=== PATIENT | male | born 1955 | race Caucasian/White ===

== ENCOUNTER 2024-10-23 10:45 | Inpatient (IN) | payer MEDICARE ==
[~2024-10-23] VITALS: Ht 185.4 cm; Wt 89.4 kg
[2024-10-23 11:35] LABS: BASOPHILS % (AUTO) 0.2 % (0.0-2.0); EOSINOPHILS # (AUTO) 0.1 K/uL (0.0-0.7); EOSINOPHILS % (AUTO) 0.6 % (0.0-6.0); HEMATOCRIT 50 % (39-51); HEMOGLOBIN 16.4 g/dL (13.5-17.5); LYMPHOCYTES # (AUTO) 1.4 K/uL (0.8-4.8); LYMPHOCYTES % (AUTO) 13.7 % (20.0-44.0); MEAN CORPUSCULAR HEMOGLOBIN 27 PG (26.0-33.0); MEAN CORPUSCULAR HGB CONC 33 g/dl (31.0-36.0); MEAN CORPUSCULAR VOLUME 84 fL (80-96); MONOCYTES % (AUTO) 10.2 % (2.0-12.0); NEUTROPHILS # (AUTO) 7.4 K/uL (1.8-8.9); NEUTROPHILS % (AUTO) 75.3 % (43.0-81.0); PLATELET COUNT (AUTO) 155 K/uL (150-450); WHITE BLOOD COUNT (AUTO) 9.9 K/uL (4.3-11.0)
[2024-10-23 11:46] LABS: INR 1.68 (0.91-1.10); PARTIAL THROMBOPLASTIN TIME 27.3 SEC (24.3-34.3); PROTHROMBIN TIME 17.2 SECS (9.2-11.1)
[2024-10-23 11:47] LABS: ALANINE AMINOTRANSFERASE 294 U/L (12-78); ALBUMIN 3.2 g/dL (3.4-5.0); ALKALINE PHOSPHATASE 89 U/L (46-116); ASPARTATE AMINOTRANSFERASE 156 U/L (15-37); BILIRUBIN,DIRECT 1.3 mg/dL (0.0-0.2); BILIRUBIN,TOTAL 3.2 mg/dL (0.2-1.0); CALCIUM, SERUM 8.5 mg/dL (8.5-10.1); CARBON DIOXIDE 23 mmol/L (21-32); CHLORIDE 106 mmol/L (98-107); CREATININE 1.6 mg/dL (0.6-1.3); GLUCOSE 96 mg/dL (74-106); POTASSIUM 4.2 mmol/L (3.5-5.1); SODIUM SERUM 139 mmol/L (136-145); TOTAL PROTEIN, SERUM 5.7 g/dL (6.4-8.2); UREA NITROGEN, BLOOD 37 mg/dL (7-18)
[2024-10-23] MEDS ORDERED: MULT1CAP28 PO (13:09)
[2024-10-23] MEDS ORDERED: ALBU6.7H9 IH (13:09)
[2024-10-23] MEDS ORDERED: ONDANSETRON HCL/PF 4 MG/2 ML VIAL IVP PRN (15:00)
[2024-10-23 16:00] VITALS: BP 127/80; TEMP 97.7; O2SAT 97
[2024-10-23 16:39] VITALS: BP 127/79; TEMP 98.4; O2SAT 97
[2024-10-23] MEDS: PIPERACILLIN /TAZOBACTAM 3.375 G in IV D5W 50 ML IV SCH (17:36)
[2024-10-23] MEDS: PHYTONADIONE INJ 10 MG/1 ML AMPUL SQ ONE (17:56)
[2024-10-23 20:00] VITALS: BP 124/85; TEMP 97.5; O2SAT 97
[2024-10-23 23:01] VITALS: O2SAT 98
[2024-10-23] MEDS: ALBUTEROL FS 2.5 MG/3 ML VIAL.NEB NEB PRN (23:02)
[2024-10-23 23:27] VITALS: BP 124/85; TEMP 97.5; O2SAT 98
[2024-10-24 06:51] LABS: BASOPHILS % (AUTO) 0.2 % (0.0-2.0); EOSINOPHILS # (AUTO) 0.1 K/uL (0.0-0.7); EOSINOPHILS % (AUTO) 1.5 % (0.0-6.0); HEMATOCRIT 43 % (39-51); HEMOGLOBIN 14.3 g/dL (13.5-17.5); LYMPHOCYTES # (AUTO) 1.3 K/uL (0.8-4.8); LYMPHOCYTES % (AUTO) 16.6 % (20.0-44.0); MEAN CORPUSCULAR HEMOGLOBIN 28 PG (26.0-33.0); MEAN CORPUSCULAR HGB CONC 33 g/dl (31.0-36.0); MEAN CORPUSCULAR VOLUME 83 fL (80-96); MONOCYTES # (AUTO) 0.9 K/uL (0.1-1.30); MONOCYTES % (AUTO) 11.6 % (2.0-12.0); NEUTROPHILS # (AUTO) 5.6 K/uL (1.8-8.9); NEUTROPHILS % (AUTO) 70.1 % (43.0-81.0); PLATELET COUNT (AUTO) 124 K/uL (150-450); RED CELL DISTRIBUTION WIDTH 16.7 % (11.5-15.0)
[2024-10-24 06:56] LABS: INR 1.57 (0.91-1.10); PROTHROMBIN TIME 16.2 SECS (9.2-11.1)
[2024-10-24 07:00] VITALS: BP 127/99; TEMP 97.7; O2SAT 97
[2024-10-24 07:13] LABS: ALBUMIN 2.5 g/dL (3.4-5.0); BILIRUBIN,TOTAL 2.3 mg/dL (0.2-1.0); CALCIUM, SERUM 8.1 mg/dL (8.5-10.1); CREATININE 1.5 mg/dL (0.6-1.3); MAGNESIUM 2.2 mg/dL (1.8-2.4); PHOSPHORUS 3.6 mg/dL (2.5-4.9); POTASSIUM 3.9 mmol/L (3.5-5.1); TOTAL PROTEIN, SERUM 4.6 g/dL (6.4-8.2)
[2024-10-24] MEDS: POTASSIUM CHLORIDE 20 MEQ TAB.PRT.SR PO SCH (07:46)
[2024-10-24] MEDS: FUROSEMIDE 40 MG/4 ML VIAL IV SCH (07:46)
[2024-10-24] MEDS: PANTOPRAZOLE 40 MG VIAL IV SCH (08:09)
[2024-10-24 13:29] LABS: APPEARANCE,URINE CLEAR (CLEAR); BILIRUBIN,URINE NEGATIVE (NEGATIVE); BLOOD, URINE TRACE-INTA Ery/uL (NEGATIVE); COLOR,URINE YELLOW (YELLOW); KETONES,URINE NEGATIVE (NEGATIVE); LEUKOCYTE ESTERASE ,URINE TRACE (NEGATIVE); NITRITE, URINE NEGATIVE (NEGATIVE); PH,URINE 5.5 (5.0-8.0); PROTEIN,URINE TRACE mg/dl (NEGATIVE); UGLUCOSE NEGATIVE (NEGATIVE); UROBILINOGEN,URINE 0.2 EU/dL (0.2)
[2024-10-24 13:35] LABS: CREATININE, URINE 54.1 MG/DL (30.0-125.0); URINE TOTAL PROTEIN 25.7 mg/dL (0-11.9)
[2024-10-24 14:04] LABS: ADD URINE CULTURE NO; BACTERIA,URINE Few /HPF (None Seen); RBC,URINE 0-2 /HPF (0-2); SQUAMOUS EPITHELIAL CELL,UR 0-2 /HPF (None Seen)
[2024-10-24 14:05] LABS: URIC ACID CRYSTALS,URINE Few /HPF (None Seen)
[2024-10-24 15:15] LABS: EOSINOPHIL,URINE None Seen
[2024-10-24 16:00] VITALS: BP 114/79; TEMP 97.3; O2SAT 95
[2024-10-24] MEDS: [UNRECOGNIZED DRUG - OTHER] PO SCH (19:30)
[2024-10-24 20:00] VITALS: BP_SYST 124; BP_SYST 132; BP_DIAS 71; BP_DIAS 77; TEMP 97.5; TEMP 98.4; O2SAT 96; O2SAT 98
[2024-10-25 04:09] LABS: HBSAG SCREEN Negative (Negative); HEPATITIS A AB, IgM Negative (Negative); HEPATITIS B CORE AB, IgM Negative (Negative)
[2024-10-25 06:47] LABS: BASOPHILS % (AUTO) 0.2 % (0.0-2.0); EOSINOPHILS # (AUTO) 0.1 K/uL (0.0-0.7); EOSINOPHILS % (AUTO) 0.7 % (0.0-6.0); HEMATOCRIT 49 % (39-51); HEMOGLOBIN 15.9 g/dL (13.5-17.5); LYMPHOCYTES # (AUTO) 1.2 K/uL (0.8-4.8); LYMPHOCYTES % (AUTO) 11.1 % (20.0-44.0); MEAN CORPUSCULAR HEMOGLOBIN 27 PG (26.0-33.0); MEAN CORPUSCULAR HGB CONC 33 g/dl (31.0-36.0); MEAN CORPUSCULAR VOLUME 83 fL (80-96); MONOCYTES # (AUTO) 1.2 K/uL (0.1-1.30); MONOCYTES % (AUTO) 11.2 % (2.0-12.0); NEUTROPHILS # (AUTO) 8.2 K/uL (1.8-8.9); NEUTROPHILS % (AUTO) 76.8 % (43.0-81.0); PLATELET COUNT (AUTO) 131 K/uL (150-450); RED BLOOD CELL COUNT(AUTO) 5.86 MIL/uL (4.5-6.0); RED CELL DISTRIBUTION WIDTH 16.6 % (11.5-15.0); WHITE BLOOD COUNT (AUTO) 10.7 K/uL (4.3-11.0)
[2024-10-25 07:00] VITALS: BP 123/61; TEMP 97.9; O2SAT 97
[2024-10-25 07:19] LABS: ALBUMIN 2.8 g/dL (3.4-5.0); BILIRUBIN,TOTAL 2.9 mg/dL (0.2-1.0); CALCIUM, SERUM 8.2 mg/dL (8.5-10.1); CREATININE 1.7 mg/dL (0.6-1.3); MAGNESIUM 1.9 mg/dL (1.8-2.4); PHOSPHORUS 3.9 mg/dL (2.5-4.9); POTASSIUM 3.7 mmol/L (3.5-5.1); TOTAL PROTEIN, SERUM 5.2 g/dL (6.4-8.2)
[2024-10-25 20:00] VITALS: BP 113/80; TEMP 97.7; O2SAT 98
[2024-10-26 06:56] LABS: BASOPHILS % (AUTO) 0.1 % (0.0-2.0); EOSINOPHILS % (AUTO) 0.5 % (0.0-6.0); HEMATOCRIT 45 % (39-51); HEMOGLOBIN 14.7 g/dL (13.5-17.5); LYMPHOCYTES % (AUTO) 10.6 % (20.0-44.0); MEAN CORPUSCULAR HEMOGLOBIN 27 PG (26.0-33.0); MEAN CORPUSCULAR HGB CONC 33 g/dl (31.0-36.0); MEAN CORPUSCULAR VOLUME 82 fL (80-96); MONOCYTES # (AUTO) 0.9 K/uL (0.1-1.30); NEUTROPHILS # (AUTO) 7.7 K/uL (1.8-8.9); NEUTROPHILS % (AUTO) 79.8 % (43.0-81.0); PLATELET COUNT (AUTO) 122 K/uL (150-450); RED BLOOD CELL COUNT(AUTO) 5.46 MIL/uL (4.5-6.0); RED CELL DISTRIBUTION WIDTH 17.1 % (11.5-15.0); WHITE BLOOD COUNT (AUTO) 9.7 K/uL (4.3-11.0)
[2024-10-26 07:28] LABS: ALBUMIN 2.8 g/dL (3.4-5.0); CALCIUM, SERUM 8.2 mg/dL (8.5-10.1); CREATININE 1.7 mg/dL (0.6-1.3); MAGNESIUM 2.1 mg/dL (1.8-2.4); PHOSPHORUS 3.6 mg/dL (2.5-4.9); POTASSIUM 2.9 mmol/L (3.5-5.1)
[2024-10-26 08:11] LABS: PTH, INTACT 8 pg/mL (15-65)
[2024-10-26] MEDS: PANTOPRAZOLE 40 MG TABLET.DR PO SCH (08:16)
[2024-10-26] MEDS: POTASSIUM CHLORIDE 20 MEQ TAB.PRT.SR PO SCH (08:16)
[2024-10-26] MEDS: FUROSEMIDE 40 MG/4 ML VIAL IV SCH (08:16)
[2024-10-26] MEDS ORDERED: POTASSIUM CHLORIDE 20 MEQ TAB.PRT.SR PO SCH (10:00)
[2024-10-26 20:00] VITALS: BP 102/71; TEMP 97.7; O2SAT 100
[2024-10-26 20:20] VITALS: BP 102/71; TEMP 97.3; O2SAT 100
[2024-10-27 06:07] LABS: AFP, TUMOR MARKER 4.7 ng/mL (0.0-8.4)
[2024-10-27 07:06] LABS: ALBUMIN 2.7 g/dL (3.4-5.0); BILIRUBIN,TOTAL 1.6 mg/dL (0.2-1.0); CREATININE 1.8 mg/dL (0.6-1.3); POTASSIUM 3.3 mmol/L (3.5-5.1)
[2024-10-27 08:00] VITALS: BP 97/74; TEMP 97.3; O2SAT 98
[2024-10-27 09:08] LABS: *SPE A/G RATIO 1.2 (0.7-1.7); *SPE ALBUMIN 2.7 g/dL (2.9-4.4); *SPE ALPHA-1-GLOBULIN 0.3 g/dL (0.0-0.4); *SPE ALPHA-2-GLOBULIN 0.4 g/dL (0.4-1.0); *SPE BETA GLOBULIN 0.9 g/dL (0.7-1.3); *SPE GLOBULIN, TOTAL 2.2 g/dL (2.2-3.9); *SPE M-SPIKE Not Observed g/dL (Not Observed); *SPE PROTEIN TOTAL 4.9 g/dL (6.0-8.5); *SPEGAMMA GLOBULIN 0.7 g/dL (0.4-1.8)
[2024-10-27] MEDS: FUROSEMIDE 40 MG TABLET PO SCH (09:08)
[2024-10-27] MEDS: POTASSIUM CHLORIDE 20 MEQ TAB.PRT.SR PO SCH ×2 (09:08→09:13)
[2024-10-27] MEDS ORDERED: METO-357 PO (11:58)
[2024-10-27] MEDS ORDERED: FURO40TA5 PO (11:58)
[2024-10-27 16:00] VITALS: BP 91/62; TEMP 98.1; O2SAT 94
== END 2024-10-27 16:50 | disposition home or self-care (01) | DRG 391 ==
LOC: ER 10:53 → MED 14:27
PROVIDERS: ATTEND Internal Medicine
PROC: 0DB58ZX Excision of Esophagus, Via Natural or Artificial Opening Endoscopic, Diagnostic (ICD-10-PCS; principal; 2024-10-24)
PROC: 0DB68ZX Excision of Stomach, Via Natural or Artificial Opening Endoscopic, Diagnostic (ICD-10-PCS; 2024-10-24)
DX: K29.70 Gastritis, unspecified, without bleeding (principal); I50.23 Acute on chronic systolic (congestive) heart failure; N17.0 Acute kidney failure with tubular necrosis; E44.1 Mild protein-calorie malnutrition; E87.20 Acidosis, unspecified; D68.9 Coagulation defect, unspecified; K22.70 Barrett's esophagus without dysplasia; K82.8 Other specified diseases of gallbladder; K72.90 Hepatic failure, unspecified without coma; E87.6 Hypokalemia; E88.09 Other disorders of plasma-protein metabolism, not elsewhere classified; I25.10 Atherosclerotic heart disease of native coronary artery without angina pectoris; Z86.16 Personal history of COVID-19; E83.9 Disorder of mineral metabolism, unspecified; K76.89 Other specified diseases of liver; K44.9 Diaphragmatic hernia without obstruction or gangrene; N28.1 Cyst of kidney, acquired; E80.6 Other disorders of bilirubin metabolism; R74.01 Elevation of levels of liver transaminase levels; Z68.26 Body mass index [BMI] 26.0-26.9, adult; N18.9 Chronic kidney disease, unspecified; I34.0 Nonrheumatic mitral (valve) insufficiency; I27.20 Pulmonary hypertension, unspecified; R13.10 Dysphagia, unspecified; J45.909 Unspecified asthma, uncomplicated
CPT/HCPCS: 36415; 71045-TC; 71250-TC; 74181-TC; 76604-TC; 76705-TC; 76770-TC; 78226; 80048-TC; 80053-TC; 80076-TC; 81001; 82105; 82378; 82550-TC; 82553; 82570-TC; 83690-TC; 83735-TC; 83970; 84100-TC; 84155; 84165; 84300-TC; 84484-TC; 85025-TC; 85610-TC; 85730-TC; 86850-TC; 93307-TC; 93970-TC; 94761-TC; 94799-TC; A9537; G0378; J1940; J2470; J2543; J2704; J3430; J3490; J7030; J7050; J7060

== ENCOUNTER 2024-11-03 15:24 | Inpatient (IN) | payer MEDICARE ==
[~2024-11-03] VITALS: Ht 185.4 cm; Wt 90.9 kg
[~2024-11-03 15:24] MED LIST: ALBU6.7H9 IH; FURO40TA5 PO; METO-357 PO; MULT1CAP28 PO
[2024-11-03] MEDS ORDERED: FUROSEMIDE 40 MG/4 ML VIAL ONE (15:46)
[2024-11-03 15:51] LABS: EOSINOPHILS # (AUTO) 0.1 K/uL (0.0-0.7)
[2024-11-03 15:55] LABS: BASOPHILS % (AUTO) 0.3 % (0.0-2.0); EOSINOPHILS % (AUTO) 0.8 % (0.0-6.0); HEMATOCRIT 52 % (39-51); HEMOGLOBIN 16.6 g/dL (13.5-17.5); LYMPHOCYTES # (AUTO) 1.3 K/uL (0.8-4.8); LYMPHOCYTES % (AUTO) 10.8 % (20.0-44.0); MEAN CORPUSCULAR HEMOGLOBIN 27 PG (26.0-33.0); MEAN CORPUSCULAR HGB CONC 32 g/dl (31.0-36.0); MEAN CORPUSCULAR VOLUME 83 fL (80-96); MONOCYTES # (AUTO) 0.8 K/uL (0.1-1.30); MONOCYTES % (AUTO) 6.8 % (2.0-12.0); NEUTROPHILS # (AUTO) 9.8 K/uL (1.8-8.9); NEUTROPHILS % (AUTO) 81.3 % (43.0-81.0); PLATELET COUNT (AUTO) 91 K/uL (150-450); RED BLOOD CELL COUNT(AUTO) 6.27 MIL/uL (4.5-6.0); RED CELL DISTRIBUTION WIDTH 17.3 % (11.5-15.0); WHITE BLOOD COUNT (AUTO) 12.1 K/uL (4.3-11.0)
[2024-11-03] MEDS: FUROSEMIDE 40 MG/4 ML VIAL IV ONE (15:58)
[2024-11-03 16:04] LABS: CALCIUM, SERUM 8.9 mg/dL (8.5-10.1); CARBON DIOXIDE 22 mmol/L (21-32); CHLORIDE 99 mmol/L (98-107); CREATININE 2.6 mg/dL (0.6-1.3); GLUCOSE 97 mg/dL (74-106); INR 2.09 (0.91-1.10); PARTIAL THROMBOPLASTIN TIME 31.3 SEC (24.3-34.3); POTASSIUM 4.4 mmol/L (3.5-5.1); PROTHROMBIN TIME 21.1 SECS (9.2-11.1); SODIUM SERUM 131 mmol/L (136-145); UREA NITROGEN, BLOOD 75 mg/dL (7-18)
[2024-11-03 16:17] LABS: ALANINE AMINOTRANSFERASE 517 U/L (12-78); ALBUMIN 3.2 g/dL (3.4-5.0); ALKALINE PHOSPHATASE 187 U/L (46-116); ASPARTATE AMINOTRANSFERASE 314 U/L (15-37); BILIRUBIN,TOTAL 5.2 mg/dL (0.2-1.0); NT-PRO BNP 8312 pg/mL (0-125); TOTAL PROTEIN, SERUM 5.7 g/dL (6.4-8.2)
[2024-11-03 17:20] LABS: BASOPHILS % (MANUAL) 0 % (0.0-2.0); EOSINOPHILS % (MANUAL) 2 % (0-4); LYMPHOCYTES % (MANUAL) 10 % (16-48); MONOCYTES % (MANUAL) 5 % (0-11.0); NEUTROPHILS % (MANUAL) 83 (42-76); PLATELET ESTIMATE DECREASED
[2024-11-03] MEDS ORDERED: ALBUTEROL SULFATE 8 GM HFA.AER.AD IH PRN (17:30)
[2024-11-03] MEDS ORDERED: Z GUARD REMEDY 4 OZ OINT TP PRN (17:30)
[2024-11-03] MEDS ORDERED: ZOLPIDEM TARTRATE 5 MG TABLET PO PRN (17:30)
[2024-11-03] MEDS ORDERED: MAGNESIUM HYDROXIDE 30 ML UDC PO PRN (17:30)
[2024-11-03] MEDS ORDERED: ACETAMINOPHEN 325 MG TABLET PO PRN (17:30)
[2024-11-03] MEDS ORDERED: MAG HYDROX/AL HYDROX/SIMETH 30 ML UDC PO PRN (17:30)
[2024-11-03] MEDS ORDERED: ONDANSETRON HCL/PF 4 MG/2 ML VIAL IVP PRN (17:30)
[2024-11-03 18:13] LABS: APPEARANCE,URINE CLEAR (CLEAR); BILIRUBIN,URINE NEGATIVE (NEGATIVE); BLOOD, URINE TRACE-INTA Ery/uL (NEGATIVE); COLOR,URINE DARK YELLOW (YELLOW); KETONES,URINE NEGATIVE (NEGATIVE); LEUKOCYTE ESTERASE ,URINE 1+ (NEGATIVE); NITRITE, URINE NEGATIVE (NEGATIVE); PH,URINE 5.5 (5.0-8.0); PROTEIN,URINE TRACE mg/dl (NEGATIVE); UGLUCOSE NEGATIVE (NEGATIVE); UROBILINOGEN,URINE 0.2 EU/dL (0.2)
[2024-11-03 18:46] LABS: ADD URINE CULTURE YES; BACTERIA,URINE Few /HPF (None Seen); WBC,URINE 21-50 /HPF (0-3)
[2024-11-03 18:47] LABS: MUCUS,URINE Moderate /LPF (None Seen); SQUAMOUS EPITHELIAL CELL,UR None Seen /HPF (None Seen)
[2024-11-03 20:00] VITALS: BP 111/76; TEMP 97.3; TEMP 97.5; O2SAT 98
[2024-11-03] MEDS ORDERED: ALBUTEROL FS 2.5 MG/3 ML VIAL.NEB IH PRN (21:00)
[2024-11-04] VITALS: BP 91/75; TEMP 97.5; O2SAT 96
[2024-11-04 04:00] VITALS: BP 107/73; TEMP 97.5; O2SAT 94; O2SAT 95
[2024-11-04 07:19] LABS: BASOPHILS % (AUTO) 0.1 % (0.0-2.0); EOSINOPHILS # (AUTO) 0.1 K/uL (0.0-0.7); EOSINOPHILS % (AUTO) 0.6 % (0.0-6.0); HEMATOCRIT 48 % (39-51); HEMOGLOBIN 15.5 g/dL (13.5-17.5); LYMPHOCYTES # (AUTO) 1.3 K/uL (0.8-4.8); MEAN CORPUSCULAR HEMOGLOBIN 27 PG (26.0-33.0); MEAN CORPUSCULAR HGB CONC 32 g/dl (31.0-36.0); MEAN CORPUSCULAR VOLUME 83 fL (80-96); MONOCYTES % (AUTO) 9.2 % (2.0-12.0); NEUTROPHILS # (AUTO) 8.6 K/uL (1.8-8.9); NEUTROPHILS % (AUTO) 78.1 % (43.0-81.0); PLATELET COUNT (AUTO) 79 K/uL (150-450); RED BLOOD CELL COUNT(AUTO) 5.82 MIL/uL (4.5-6.0); RED CELL DISTRIBUTION WIDTH 17.4 % (11.5-15.0)
[2024-11-04 08:00] VITALS: BP 104/68; O2SAT 99
[2024-11-04 08:20] LABS: ALBUMIN 2.8 g/dL (3.4-5.0); BILIRUBIN,TOTAL 4.7 mg/dL (0.2-1.0); CREATININE 2.5 mg/dL (0.6-1.3); MAGNESIUM 2.8 mg/dL (1.8-2.4); PHOSPHORUS 4.6 mg/dL (2.5-4.9); POTASSIUM 4.5 mmol/L (3.5-5.1)
[2024-11-04 08:35] LABS: CALCIUM, SERUM 8.5 mg/dL (8.5-10.1)
[2024-11-04] MEDS: METOPROLOL SUCCINATE 50 MG TAB.SR.24H PO SCH (08:38)
[2024-11-04] MEDS: PANTOPRAZOLE 40 MG VIAL IV SCH (08:38)
[2024-11-04] MEDS: ASPIRIN 81 MG TAB.CHEW PO SCH (08:38)
[2024-11-04 09:30] LABS: BAND % (MANUAL) 0 % (0.0-5.0); BASOPHILS % (MANUAL) 0 % (0.0-2.0); EOSINOPHILS % (MANUAL) 0 % (0-4); LYMPHOCYTES % (MANUAL) 10 % (16-48); MONOCYTES % (MANUAL) 7 % (0-11.0); NEUTROPHILS % (MANUAL) 83 (42-76); PLATELET ESTIMATE DECREASED
[2024-11-04] MEDS: IV NS 0.9% 1,000 ML IV PRN (10:22)
[2024-11-04 12:00] VITALS: BP 102/72; O2SAT 97
[2024-11-04] MEDS ORDERED: ALBUMIN 5% 12.5 GM/250 ML BOTTLE IV ONE (13:00)
[2024-11-04] MEDS: ALBUMIN 5% 12.5 GM in PREMIX 1 EA IV ONE (13:58)
[2024-11-04 16:00] VITALS: BP 110/88; O2SAT 98
[2024-11-04 16:00] LABS: APPEARANCE,URINE CLEAR (CLEAR); BILIRUBIN,URINE NEGATIVE (NEGATIVE); BLOOD, URINE TRACE-INTA Ery/uL (NEGATIVE); COLOR,URINE YELLOW (YELLOW); KETONES,URINE NEGATIVE (NEGATIVE); LEUKOCYTE ESTERASE ,URINE 1+ (NEGATIVE); NITRITE, URINE NEGATIVE (NEGATIVE); PH,URINE 5.5 (5.0-8.0); PROTEIN,URINE TRACE mg/dl (NEGATIVE); UGLUCOSE NEGATIVE (NEGATIVE); UROBILINOGEN,URINE 0.2 EU/dL (0.2)
[2024-11-04] MEDS: CEFTRIAXONE 1 G in IV D5W 50 ML IV SCH (16:16)
[2024-11-04 16:51] LABS: ADD URINE CULTURE YES; BACTERIA,URINE 2+ /HPF (None Seen)
[2024-11-04 16:52] LABS: MUCUS,URINE Moderate /LPF (None Seen)
[2024-11-04 16:53] LABS: HYALINE CASTS, URINE Moderate /LPF (None Seen)
[2024-11-04 17:42] LABS: EOSINOPHIL,URINE None Seen
[2024-11-04] MEDS: SUCRALFATE 1 G TABLET PO SCH (17:59)
[2024-11-04 20:00] VITALS: BP 102/62; TEMP 97.8; O2SAT 94
[2024-11-04 20:58] LABS: CREATININE, URINE 126.8 MG/DL (30.0-125.0); URINE TOTAL PROTEIN 34.1 mg/dL (0-11.9)
[2024-11-05] VITALS: BP_SYST 62; TEMP 97.7; O2SAT 98
[2024-11-05 04:26] VITALS: BP 101/74; TEMP 97.8; O2SAT 98
[2024-11-05 07:23] LABS: EOSINOPHILS % (AUTO) 0.1 % (0.0-6.0); HEMATOCRIT 48 % (39-51); HEMOGLOBIN 15.6 g/dL (13.5-17.5); MEAN CORPUSCULAR HEMOGLOBIN 27 PG (26.0-33.0); MEAN CORPUSCULAR HGB CONC 33 g/dl (31.0-36.0); MEAN CORPUSCULAR VOLUME 83 fL (80-96); MONOCYTES % (AUTO) 8.9 % (2.0-12.0); NEUTROPHILS # (AUTO) 8.8 K/uL (1.8-8.9); PLATELET COUNT (AUTO) 64 K/uL (150-450); RED BLOOD CELL COUNT(AUTO) 5.76 MIL/uL (4.5-6.0); RED CELL DISTRIBUTION WIDTH 17.3 % (11.5-15.0); WHITE BLOOD COUNT (AUTO) 10.7 K/uL (4.3-11.0)
[2024-11-05 07:37] LABS: ALBUMIN 2.9 g/dL (3.4-5.0); BILIRUBIN,TOTAL 5.2 mg/dL (0.2-1.0); CALCIUM, SERUM 8.7 mg/dL (8.5-10.1); CREATININE 2.6 mg/dL (0.6-1.3); MAGNESIUM 2.8 mg/dL (1.8-2.4); PHOSPHORUS 5.2 mg/dL (2.5-4.9); POTASSIUM 4.6 mmol/L (3.5-5.1); TOTAL PROTEIN, SERUM 5.2 g/dL (6.4-8.2)
[2024-11-05 08:00] VITALS: BP 97/72; TEMP 97.3; O2SAT 92
[2024-11-05] MEDS: MULTIVIT W/MINERALS 1 TAB TABLET PO SCH (08:29)
[2024-11-05 10:56] LABS: LYMPHOCYTES % (MANUAL) 7 % (16-48); MONOCYTES % (MANUAL) 4 % (0-11.0); NEUTROPHILS % (MANUAL) 89 (42-76); PLATELET ESTIMATE DECREASED
[2024-11-05 12:00] VITALS: BP 99/64; TEMP 97.6; O2SAT 100
[2024-11-05 16:00] VITALS: BP 100/67; TEMP 98.3; O2SAT 98
[2024-11-05 18:23] LABS: OCCULT BLOOD STOOL NEGATIVE (NEGATIVE)
[2024-11-05 20:00] VITALS: BP 101/75; TEMP 97.5; O2SAT 100
[2024-11-05] MEDS: IV NS 0.9% 1,000 ML IV PRN (23:28)
[2024-11-06] VITALS: BP 106/85; TEMP 97.2; TEMP 97.5; O2SAT 95
[2024-11-06 04:00] VITALS: BP 97/66; TEMP 97.2; O2SAT 100
[2024-11-06 07:39] LABS: ALBUMIN 2.7 g/dL (3.4-5.0); BILIRUBIN,TOTAL 4.2 mg/dL (0.2-1.0); CALCIUM, SERUM 8.2 mg/dL (8.5-10.1); CREATININE 2.5 mg/dL (0.6-1.3); TOTAL PROTEIN, SERUM 4.8 g/dL (6.4-8.2)
[2024-11-06 08:00] VITALS: BP 98/61; TEMP 97.4; O2SAT 94
[2024-11-06] MEDS: PANTOPRAZOLE 40 MG TABLET.DR PO SCH (08:20)
[2024-11-06] MEDS: DAPAGLIFLOZIN PROPANEDIOL 5 MG TABLET PO SCH (08:20)
[2024-11-06 09:44] LABS: EOSINOPHILS % (AUTO) 0.4 % (0.0-6.0); HEMATOCRIT 47 % (39-51); HEMOGLOBIN 15.3 g/dL (13.5-17.5); LYMPHOCYTES % (AUTO) 10.1 % (20.0-44.0); MEAN CORPUSCULAR HEMOGLOBIN 27 PG (26.0-33.0); MEAN CORPUSCULAR HGB CONC 32 g/dl (31.0-36.0); MEAN CORPUSCULAR VOLUME 83 fL (80-96); MONOCYTES # (AUTO) 0.8 K/uL (0.1-1.30); MONOCYTES % (AUTO) 7.5 % (2.0-12.0); NEUTROPHILS # (AUTO) 8.4 K/uL (1.8-8.9); RED BLOOD CELL COUNT(AUTO) 5.74 MIL/uL (4.5-6.0); RED CELL DISTRIBUTION WIDTH 17.2 % (11.5-15.0); WHITE BLOOD COUNT (AUTO) 10.2 K/uL (4.3-11.0)
[2024-11-06 10:33] LABS: PLATELET COUNT (AUTO) 41 K/uL (150-450)
[2024-11-06] MEDS: FUROSEMIDE 40 MG/4 ML VIAL IV SCH (11:03)
[2024-11-06 12:00] VITALS: BP 96/66; TEMP 97.4; O2SAT 99
[2024-11-06 16:00] VITALS: TEMP 96.2; O2SAT 99
[2024-11-06 16:00] LABS: ANISOCYTOSIS 1+; BAND % (MANUAL) 0 % (0.0-5.0); BASOPHILS % (MANUAL) 0 % (0.0-2.0); EOSINOPHILS % (MANUAL) 0 % (0-4); LYMPHOCYTES % (MANUAL) 10 % (16-48); MONOCYTES % (MANUAL) 6 % (0-11.0); NEUTROPHILS % (MANUAL) 84 (42-76); PLATELET ESTIMATE DECREASED
[2024-11-06] MEDS: MIDODRINE HCL (5MG) 5 MG TABLET PO PRN (17:12)
[2024-11-06 20:00] VITALS: BP 95/60; TEMP 97.4; O2SAT 99
[2024-11-07] VITALS: BP 97/69; TEMP 97.2; O2SAT 96
[2024-11-07 04:00] VITALS: BP 111/65; TEMP 96.9; O2SAT 95
[2024-11-07 06:28] LABS: ALBUMIN 2.6 g/dL (3.4-5.0); BILIRUBIN,TOTAL 4.2 mg/dL (0.2-1.0); CALCIUM, SERUM 8.1 mg/dL (8.5-10.1); CREATININE 2.5 mg/dL (0.6-1.3); POTASSIUM 4.5 mmol/L (3.5-5.1); TOTAL PROTEIN, SERUM 4.6 g/dL (6.4-8.2)
[2024-11-07 06:29] LABS: C-REACTIVE PROTEIN 1.07 mg/dL (0.0-0.30)
[2024-11-07 06:45] LABS: EOSINOPHILS % (AUTO) 0.4 % (0.0-6.0); HEMATOCRIT 45 % (39-51); HEMOGLOBIN 14.8 g/dL (13.5-17.5); LYMPHOCYTES # (AUTO) 0.9 K/uL (0.8-4.8); LYMPHOCYTES % (AUTO) 10.4 % (20.0-44.0); MEAN CORPUSCULAR HEMOGLOBIN 27 PG (26.0-33.0); MEAN CORPUSCULAR HGB CONC 33 g/dl (31.0-36.0); MEAN CORPUSCULAR VOLUME 82 fL (80-96); MONOCYTES # (AUTO) 0.7 K/uL (0.1-1.30); MONOCYTES % (AUTO) 8.2 % (2.0-12.0); NEUTROPHILS # (AUTO) 7.3 K/uL (1.8-8.9); RED BLOOD CELL COUNT(AUTO) 5.46 MIL/uL (4.5-6.0); RED CELL DISTRIBUTION WIDTH 17.1 % (11.5-15.0)
[2024-11-07 07:00] VITALS: BP 100/71; TEMP 97.5; O2SAT 100
[2024-11-07 07:09] LABS: RHEUMATOID FACTOR SCREEN POSITIVE (NEGATIVE)
[2024-11-07 07:23] LABS: THYROID STIMULATING HORMONE 6.81 uIU/mL (0.358-3.74)
[2024-11-07 08:50] LABS: PLATELET COUNT (AUTO) 42 K/uL (150-450)
[2024-11-07 13:21] LABS: LYMPHOCYTES % (MANUAL) 3 % (16-48); NEUTROPHILS % (MANUAL) 97 (42-76); PLATELET ESTIMATE DECREASED
[2024-11-07 16:00] VITALS: BP 100/64; TEMP 97.3; O2SAT 100
[2024-11-07 20:00] VITALS: BP 97/64; TEMP 97.3; O2SAT 96
[2024-11-07] MEDS: TAMSULOSIN 0.4 MG CAP.SR.24H PO SCH (21:16)
[2024-11-08] VITALS: BP 100/67; TEMP 97.3; O2SAT 98
[2024-11-08 04:00] VITALS: BP 96/59; TEMP 97.5; O2SAT 98
[2024-11-08 07:00] VITALS: BP 98/62; TEMP 97.7; O2SAT 98
[2024-11-08 07:03] LABS: EOSINOPHILS # (AUTO) 0.1 K/uL (0.0-0.7); EOSINOPHILS % (AUTO) 0.9 % (0.0-6.0); HEMATOCRIT 41 % (39-51); HEMOGLOBIN 13.3 g/dL (13.5-17.5); LYMPHOCYTES # (AUTO) 0.8 K/uL (0.8-4.8); LYMPHOCYTES % (AUTO) 9.8 % (20.0-44.0); MEAN CORPUSCULAR HEMOGLOBIN 26 PG (26.0-33.0); MEAN CORPUSCULAR HGB CONC 33 g/dl (31.0-36.0); MEAN CORPUSCULAR VOLUME 81 fL (80-96); MONOCYTES # (AUTO) 0.7 K/uL (0.1-1.30); MONOCYTES % (AUTO) 8.5 % (2.0-12.0); NEUTROPHILS # (AUTO) 6.4 K/uL (1.8-8.9); NEUTROPHILS % (AUTO) 80.8 % (43.0-81.0); RED BLOOD CELL COUNT(AUTO) 5.07 MIL/uL (4.5-6.0); RED CELL DISTRIBUTION WIDTH 17.7 % (11.5-15.0); WHITE BLOOD COUNT (AUTO) 7.9 K/uL (4.3-11.0)
[2024-11-08 07:16] LABS: ALBUMIN 2.4 g/dL (3.4-5.0); CALCIUM, SERUM 7.8 mg/dL (8.5-10.1); CREATININE 1.9 mg/dL (0.6-1.3); MAGNESIUM 2.3 mg/dL (1.8-2.4); PHOSPHORUS 2.5 mg/dL (2.5-4.9); POTASSIUM 3.2 mmol/L (3.5-5.1); TOTAL PROTEIN, SERUM 4.2 g/dL (6.4-8.2)
[2024-11-08 07:25] LABS: PLATELET COUNT (AUTO) 50 K/uL (150-450)
[2024-11-08 09:09] LABS: FOLIC ACID 11.7 ng/mL (>3.0)
[2024-11-08] MEDS: POTASSIUM CHLORIDE 20 MEQ TAB.PRT.SR PO SCH (10:14)
[2024-11-08 11:12] LABS: FREE LAMBDA LT CHAIN SERUM 26.4 mg/L (5.7-26.3); HEPATITIS B SURFACE AB Non Reactive (.); KAPPA/LAMBDA RATIO SERUM 0.91 (0.26-1.65)
[2024-11-08 12:07] LABS: IMMUNOGLOBULIN A, SERUM 264 mg/dL (61-437); IMMUNOGLOBULIN G, SERUM 740 mg/dL (603-1613); IMMUNOGLOBULIN M, SERUM 61 mg/dL (20-172)
[2024-11-08 12:50] LABS: EOSINOPHILS % (MANUAL) 1 % (0-4); LYMPHOCYTES % (MANUAL) 3 % (16-48); MONOCYTES % (MANUAL) 5 % (0-11.0); NEUTROPHILS % (MANUAL) 91 (42-76); PLATELET ESTIMATE DECREASED
[2024-11-08] MEDS: FINASTERIDE (5 MG) 5 MG TABLET PO SCH (12:57)
[2024-11-08 16:00] VITALS: BP 104/64; TEMP 97.3; O2SAT 99
[2024-11-08 20:00] VITALS: BP 104/60; TEMP 97.7; O2SAT 96
[2024-11-09] VITALS (13 sets, daily range): BP systolic 92–108; BP diastolic 56–74; TEMP 95.1–98.2; O2SAT 96–97
[2024-11-09] MEDS: ACETAMINOPHEN 325 MG TABLET PO PRN (00:39)
[2024-11-09 07:44] LABS: BASOPHILS % (AUTO) 0.1 % (0.0-2.0); EOSINOPHILS % (AUTO) 0.6 % (0.0-6.0); HEMATOCRIT 40 % (39-51); HEMOGLOBIN 13.2 g/dL (13.5-17.5); LYMPHOCYTES # (AUTO) 0.6 K/uL (0.8-4.8); LYMPHOCYTES % (AUTO) 7.6 % (20.0-44.0); MEAN CORPUSCULAR HEMOGLOBIN 27 PG (26.0-33.0); MEAN CORPUSCULAR HGB CONC 33 g/dl (31.0-36.0); MEAN CORPUSCULAR VOLUME 81 fL (80-96); MONOCYTES # (AUTO) 0.6 K/uL (0.1-1.30); MONOCYTES % (AUTO) 7.8 % (2.0-12.0); NEUTROPHILS # (AUTO) 6.6 K/uL (1.8-8.9); NEUTROPHILS % (AUTO) 83.9 % (43.0-81.0); RED BLOOD CELL COUNT(AUTO) 4.95 MIL/uL (4.5-6.0); RED CELL DISTRIBUTION WIDTH 17.3 % (11.5-15.0); WHITE BLOOD COUNT (AUTO) 7.9 K/uL (4.3-11.0)
[2024-11-09 07:59] LABS: PLATELET COUNT (AUTO) 46 K/uL (150-450)
[2024-11-09 08:04] LABS: ALBUMIN 2.3 g/dL (3.4-5.0); BILIRUBIN,TOTAL 3.2 mg/dL (0.2-1.0); CALCIUM, SERUM 7.7 mg/dL (8.5-10.1); CREATININE 1.5 mg/dL (0.6-1.3); MAGNESIUM 2.1 mg/dL (1.8-2.4); PHOSPHORUS 2.2 mg/dL (2.5-4.9); POTASSIUM 3.2 mmol/L (3.5-5.1); TOTAL PROTEIN, SERUM 4.2 g/dL (6.4-8.2)
[2024-11-09] MEDS: diphenhydrAMINE HCL 50 MG/ML VIAL IV ONE ×2 (08:30→15:10)
[2024-11-09] MEDS: ACETAMINOPHEN 325 MG TABLET PO ONE ×2 (08:30→15:10)
[2024-11-09] MEDS ORDERED: POTASSIUM CHLORIDE 20 MEQ TAB.PRT.SR PO SCH (10:00)
[2024-11-09] MEDS: POTASSIUM CL. PREMIX PERIPHER. 50 ML IV SCH (10:37)
[2024-11-09 11:04] LABS: LYMPHOCYTES % (MANUAL) 3 % (16-48); MONOCYTES % (MANUAL) 4 % (0-11.0); NEUTROPHILS % (MANUAL) 93 (42-76); PLATELET ESTIMATE DECREASED
[2024-11-09 11:54] LABS: HIV-1 p24 ANTIGEN NON REACTIVE (NONREACTIVE); HIV-1/2 ANTIBODY NON REACTIVE (NONREACTIVE)
[2024-11-09 13:42] LABS: INR 1.6 (0.91-1.10); PARTIAL THROMBOPLASTIN TIME 32.5 SEC (24.3-34.3); PROTHROMBIN TIME 16.4 SECS (9.2-11.1)
[2024-11-09 13:55] LABS: D-DIMER 5.15 mg/L(FEU (0.17-0.50)
[2024-11-09 15:07] LABS: *SPE A/G RATIO 1.4 (0.7-1.7); *SPE ALBUMIN 2.8 g/dL (2.9-4.4); *SPE ALPHA-1-GLOBULIN 0.2 g/dL (0.0-0.4); *SPE ALPHA-2-GLOBULIN 0.3 g/dL (0.4-1.0); *SPE BETA GLOBULIN 0.7 g/dL (0.7-1.3); *SPE M-SPIKE Not Observed g/dL (Not Observed); *SPE PROTEIN TOTAL 4.8 g/dL (6.0-8.5); *SPEGAMMA GLOBULIN 0.7 g/dL (0.4-1.8)
[2024-11-09] MEDS: NEUTRA PHOS 1 POWD.PACKET PO ONE (17:35)
[2024-11-10 00:36] VITALS: BP 94/64; TEMP 97.5; O2SAT 98
[2024-11-10 06:47] LABS: BASOPHILS % (AUTO) 0.2 % (0.0-2.0); EOSINOPHILS # (AUTO) 0.1 K/uL (0.0-0.7); EOSINOPHILS % (AUTO) 1.7 % (0.0-6.0); HEMATOCRIT 38 % (39-51); HEMOGLOBIN 12.5 g/dL (13.5-17.5); LYMPHOCYTES # (AUTO) 0.7 K/uL (0.8-4.8); LYMPHOCYTES % (AUTO) 11.1 % (20.0-44.0); MEAN CORPUSCULAR HEMOGLOBIN 27 PG (26.0-33.0); MEAN CORPUSCULAR HGB CONC 33 g/dl (31.0-36.0); MEAN CORPUSCULAR VOLUME 80 fL (80-96); MONOCYTES # (AUTO) 0.5 K/uL (0.1-1.30); MONOCYTES % (AUTO) 7.8 % (2.0-12.0); NEUTROPHILS % (AUTO) 79.2 % (43.0-81.0); RED BLOOD CELL COUNT(AUTO) 4.73 MIL/uL (4.5-6.0); RED CELL DISTRIBUTION WIDTH 17.6 % (11.5-15.0); WHITE BLOOD COUNT (AUTO) 6.3 K/uL (4.3-11.0)
[2024-11-10 06:53] LABS: CALCIUM, SERUM 7.5 mg/dL (8.5-10.1); CREATININE 1.2 mg/dL (0.6-1.3); MAGNESIUM 1.8 mg/dL (1.8-2.4); PHOSPHORUS 2.5 mg/dL (2.5-4.9); POTASSIUM 3.1 mmol/L (3.5-5.1)
[2024-11-10 06:55] LABS: PLATELET COUNT (AUTO) 49 K/uL (150-450)
[2024-11-10 06:57] LABS: INR 1.35 (0.91-1.10); PARTIAL THROMBOPLASTIN TIME 31.2 SEC (24.3-34.3)
[2024-11-10 06:58] LABS: D-DIMER 5.71 mg/L(FEU (0.17-0.50)
[2024-11-10 08:00] VITALS: BP 97/65; TEMP 98.1; O2SAT 98
[2024-11-10] MEDS: POTASSIUM CHLORIDE 20 MEQ TAB.PRT.SR PO SCH (09:00)
[2024-11-10 10:41] LABS: EOSINOPHILS % (MANUAL) 3 % (0-4); LYMPHOCYTES % (MANUAL) 11 % (16-48); MONOCYTES % (MANUAL) 6 % (0-11.0); NEUTROPHILS % (MANUAL) 80 (42-76)
[2024-11-10 10:42] LABS: ANISOCYTOSIS 1+; HYPOCHROMASIA 1+; PLATELET ESTIMATE DECREASED
[2024-11-10 12:00] VITALS: BP 92/64; TEMP 98.3; O2SAT 96
[2024-11-10] MEDS: ACETAMINOPHEN 325 MG TABLET PO ONE (13:11)
[2024-11-10] MEDS: diphenhydrAMINE HCL 50 MG/ML VIAL IV ONE (13:12)
[2024-11-10] MEDS ORDERED: GADOTERATE MEGLUMINE 10 MMOL/20 ML VIAL IV ONE (14:26)
[2024-11-10 16:00] VITALS: BP 94/69; TEMP 97.9; O2SAT 93
[2024-11-10 20:00] VITALS: BP 96/68; TEMP 98.2; O2SAT 100
[2024-11-11] VITALS: BP 97/68; TEMP 97.7; O2SAT 98
[2024-11-11 04:00] VITALS: BP 93/61; TEMP 98.2; O2SAT 98
[2024-11-11] MEDS: METOPROLOL SUCCINATE 25 MG TAB.SR.24H PO SCH (06:30)
[2024-11-11 08:00] VITALS: BP 98/67; TEMP 98.3; O2SAT 97
[2024-11-11 08:37] LABS: BASOPHILS # (AUTO) 0.1 K/uL (0.0-0.2); BASOPHILS % (AUTO) 0.8 % (0.0-2.0); EOSINOPHILS # (AUTO) 0.1 K/uL (0.0-0.7); EOSINOPHILS % (AUTO) 2.2 % (0.0-6.0); HEMATOCRIT 40 % (39-51); HEMOGLOBIN 12.9 g/dL (13.5-17.5); LYMPHOCYTES # (AUTO) 0.8 K/uL (0.8-4.8); LYMPHOCYTES % (AUTO) 11.4 % (20.0-44.0); MEAN CORPUSCULAR HEMOGLOBIN 26 PG (26.0-33.0); MEAN CORPUSCULAR HGB CONC 33 g/dl (31.0-36.0); MEAN CORPUSCULAR VOLUME 81 fL (80-96); MONOCYTES # (AUTO) 0.5 K/uL (0.1-1.30); MONOCYTES % (AUTO) 7.4 % (2.0-12.0); NEUTROPHILS # (AUTO) 5.3 K/uL (1.8-8.9); NEUTROPHILS % (AUTO) 78.2 % (43.0-81.0); RED CELL DISTRIBUTION WIDTH 17.5 % (11.5-15.0); WHITE BLOOD COUNT (AUTO) 6.7 K/uL (4.3-11.0)
[2024-11-11 08:39] LABS: INR 1.24 (0.91-1.10); PARTIAL THROMBOPLASTIN TIME 29.6 SEC (24.3-34.3)
[2024-11-11 08:41] LABS: PLATELET COUNT (AUTO) 49 K/uL (150-450)
[2024-11-11] MEDS: SPIRONOLACTONE 25 MG TABLET PO SCH (08:44)
[2024-11-11] MEDS: BUMETANIDE (1 MG) 1 MG TABLET PO SCH (08:44)
[2024-11-11 08:55] LABS: D-DIMER 5.17 mg/L(FEU (0.17-0.50)
[2024-11-11 09:01] LABS: CALCIUM, SERUM 9.4 mg/dL (8.5-10.1); CREATININE 0.7 mg/dL (0.6-1.3); POTASSIUM 3.9 mmol/L (3.5-5.1)
[2024-11-11 09:07] LABS: BILIRUBIN,TOTAL 0.4 mg/dL (0.2-1.0); TOTAL PROTEIN, SERUM 7.3 g/dL (6.4-8.2)
[2024-11-11] MEDS ORDERED: Tamsulosin PO (09:50)
[2024-11-11] MEDS ORDERED: POTA20TA83 PO (09:50)
[2024-11-11] MEDS ORDERED: PANT40TA49 PO (09:50)
[2024-11-11] MEDS ORDERED: SPIR25TA6 PO (09:50)
[2024-11-11] MEDS ORDERED: FINA5TAB3 PO (09:50)
[2024-11-11] MEDS ORDERED: SUCR1TAB31 PO (09:50)
[2024-11-11] MEDS ORDERED: DAPA5TAB PO (09:50)
[2024-11-11] MEDS ORDERED: BUME1TAB8 PO (09:50)
[2024-11-11 12:00] VITALS: BP 94/68; TEMP 97.9; O2SAT 97
[2024-11-11] MEDS ORDERED: ACETAMINOPHEN 325 MG TABLET PO ONE (12:00)
[2024-11-11] MEDS ORDERED: diphenhydrAMINE HCL 50 MG/ML VIAL IV ONE (12:00)
[2024-11-11 12:48] LABS: FERRITIN 219 ng/mL (8-388); IRON, SERUM 26 ug/dl (50-175)
[2024-11-11 13:08] LABS: EOSINOPHILS % (MANUAL) 1 % (0-4); LYMPHOCYTES % (MANUAL) 8 % (16-48); MONOCYTES % (MANUAL) 5 % (0-11.0); NEUTROPHILS % (MANUAL) 86 (42-76)
[2024-11-11 13:09] LABS: ANISOCYTOSIS 1+; PLATELET ESTIMATE DECREASED
[2024-11-11 16:00] VITALS: BP 89/64; TEMP 97.9; O2SAT 97
[2024-11-11 16:33] LABS: BILIRUBIN,DIRECT 1.5 mg/dL (0.0-0.2); BILIRUBIN,TOTAL 2.3 mg/dL (0.2-1.0)
[2024-11-11 20:00] VITALS: BP 88/64; O2SAT 98
[2024-11-12] VITALS (10 sets, daily range): BP systolic 77–104; BP diastolic 46–71; TEMP 97.5–98.5; O2SAT 97–98
[2024-11-12] MEDS: ACETAMINOPHEN 325 MG TABLET PO ONE (03:48)
[2024-11-12] MEDS: diphenhydrAMINE HCL 50 MG/ML VIAL IV ONE (03:49)
[2024-11-12 09:36] LABS: BASOPHILS % (AUTO) 0.2 % (0.0-2.0); EOSINOPHILS # (AUTO) 0.1 K/uL (0.0-0.7); EOSINOPHILS % (AUTO) 1.4 % (0.0-6.0); HEMATOCRIT 40 % (39-51); HEMOGLOBIN 12.6 g/dL (13.5-17.5); LYMPHOCYTES # (AUTO) 0.7 K/uL (0.8-4.8); MEAN CORPUSCULAR HEMOGLOBIN 26 PG (26.0-33.0); MEAN CORPUSCULAR HGB CONC 32 g/dl (31.0-36.0); MEAN CORPUSCULAR VOLUME 81 fL (80-96); MONOCYTES # (AUTO) 0.4 K/uL (0.1-1.30); MONOCYTES % (AUTO) 6.6 % (2.0-12.0); NEUTROPHILS # (AUTO) 5.1 K/uL (1.8-8.9); NEUTROPHILS % (AUTO) 80.8 % (43.0-81.0); PLATELET COUNT (AUTO) 62 K/uL (150-450); RED BLOOD CELL COUNT(AUTO) 4.86 MIL/uL (4.5-6.0); RED CELL DISTRIBUTION WIDTH 17.8 % (11.5-15.0); WHITE BLOOD COUNT (AUTO) 6.3 K/uL (4.3-11.0)
[2024-11-12 09:58] LABS: INR 1.26 (0.91-1.10); PARTIAL THROMBOPLASTIN TIME 27.7 SEC (24.3-34.3); PROTHROMBIN TIME 13.2 SECS (9.2-11.1)
[2024-11-12 09:59] LABS: D-DIMER 4.83 mg/L(FEU (0.17-0.50)
[2024-11-12 10:01] LABS: ALBUMIN 2.7 g/dL (3.4-5.0); BILIRUBIN,TOTAL 2.6 mg/dL (0.2-1.0); CALCIUM, SERUM 8.1 mg/dL (8.5-10.1); CREATININE 1.2 mg/dL (0.6-1.3); POTASSIUM 3.7 mmol/L (3.5-5.1); TOTAL PROTEIN, SERUM 5.2 g/dL (6.4-8.2)
[2024-11-12 10:44] LABS: LYMPHOCYTES % (MANUAL) 12 % (16-48); MONOCYTES % (MANUAL) 4 % (0-11.0); NEUTROPHILS % (MANUAL) 84 (42-76); PLATELET ESTIMATE DECREASED
[2024-11-12 10:45] LABS: TARGET CELLS 1+
== END 2024-11-12 13:30 | DRG 280 ==
LOC: ER 15:27 → MED 18:24 → TELE 11-04 06:03
PROVIDERS: ADMIT Nurse Practitioner Acute Care; ATTEND Internal Medicine
DX: I13.0 Hypertensive heart and chronic kidney disease with heart failure and stage 1 through stage 4 chronic kidney disease, or unspecified chronic kidney disease (principal); I50.23 Acute on chronic systolic (congestive) heart failure; I21.A1 Myocardial infarction type 2; N17.0 Acute kidney failure with tubular necrosis; K83.1 Obstruction of bile duct; E44.0 Moderate protein-calorie malnutrition; E87.1 Hypo-osmolality and hyponatremia; D68.9 Coagulation defect, unspecified; N13.6 Pyonephrosis; K82.8 Other specified diseases of gallbladder; N18.9 Chronic kidney disease, unspecified; D69.6 Thrombocytopenia, unspecified; K29.70 Gastritis, unspecified, without bleeding; E83.9 Disorder of mineral metabolism, unspecified; Z79.899 Other long term (current) drug therapy; Z86.16 Personal history of COVID-19; R10.9 Unspecified abdominal pain; R74.01 Elevation of levels of liver transaminase levels; D72.829 Elevated white blood cell count, unspecified; R53.1 Weakness; E88.09 Other disorders of plasma-protein metabolism, not elsewhere classified; Z68.26 Body mass index [BMI] 26.0-26.9, adult; I27.20 Pulmonary hypertension, unspecified; I34.0 Nonrheumatic mitral (valve) insufficiency; I42.0 Dilated cardiomyopathy; K76.89 Other specified diseases of liver; N28.1 Cyst of kidney, acquired; N40.1 Benign prostatic hyperplasia with lower urinary tract symptoms; Z20.822 Contact with and (suspected) exposure to COVID-19
CPT/HCPCS: 36415; 71045-TC; 72197-TC; 74183; 76705-TC; 76770-TC; 80048-TC; 80053-TC; 80076-TC; 81001; 82140-TC; 82247-TC; 82248-TC; 82272-TC; 82550-TC; 82553; 82570-TC; 82607-TC; 82728-TC; 82784; 83010; 83540-TC; 83615-TC; 83735-TC; 83880; 83970; 84100-TC; 84155; 84165; 84300-TC; 84443-TC; 84484-TC; 85025-TC; 85045-TC; 85396; 85730-TC; 86140-TC; 86225; 86235; 86334; 86431-TC; 86706; 86803; 86850-TC; 86880-TC; 87040-TC; 87081-TC; 87086-TC; 87340; 87806; 93970-TC; 97110-TC; 97116-TC; 97530-TC; A4216; A4223; A9575; G0378; J0696; J1200; J1940; J2470; J3480; J7030; J7050; J7060; P9012; P9045